=== PATIENT | female | born 1965 | race Caucasian/White ===

== ENCOUNTER → 2017-05-02 16:06 | Outpatient (CLI) | payer OTHER, SELFPAY ==
[2014-02-07 05:33] VITALS: BMI 21.7
[2014-02-07 06:45] VITALS: BP 112/71
[2017-05-02 17:54] LABS: Color, Urine Yellow (Yellow); Glucose, Dipstick Normal (Normal); Ketone-Dipstick Negative (Negative); Leukocyte Esterase-Dipstick Negative /ul (Negative); Nitrite-Dipstick Negative (Negative); Occult Blood-Urine 50 /ul (Negative); Protein-Dipstick Negative (Negative); Urine Bilirubin Dipstick Negative (Negative); Urine Clarity Clear (Clear); Urine Urobilinogen Normal (Normal)
[2017-05-02 17:57] LABS: Absolute Lymphocyte Count 3.29 X10^3/ul (0.83-4.51); Absolute Neutrophil Count 5.3 X10^3/uL (2.0-7.7); Basophil# 0.08 X10^3/uL; Basophil% 0.8 % (0-1); Hematocrit 41.3 % (37-47); Hemoglobin 13.9 g/dl (12.0-15.0); Lymphocyte # 3.29 X10^3/ul (4.0); Lymphocyte % 33.8 % (19-41); Mean Corp Hgb Conc 33.7 g/gl (32-36); Mean Corpuscular Hgb 31.7 pg (27.0-32.0); Mean Corpuscular Volume 94.3 fL (81-99); Mean Platelet Vol. 10.9 fl (6.2-12.0); Monocyte# 1.01 X10^3/uL; Monocyte% 10.4 % (0-10); Neutrophil # 5.25 X10^3/uL (2.7-7.7); Neutrophil % 53.9 % (47-70); POSITIVE COUNT NO; POSITIVE DIFFERENTIAL NO; POSITIVE MORPHOLOGY NO; Platelet Count 303 K/mm3 (150-450); RBC Distribution Width SD 46.6 fl (35.1-43.9); Red Blood Count 4.38 M/mm3 (4.2-5.4); White Blood Count 9.7 K/mm3 (4.4-11.0)
[2017-05-02 18:17] LABS: Microalbumin,Random Urine 6.1 mg/L (NO RANGE EST.); Microalbumin:Creatinine Ratio 16.7 mg/g CRE (<30 mg/g CRE)
[2017-05-02 18:24] LABS: AST(SGOT) 35 U/L (15-37); Alanine Aminotransfer ALT/SGPT 23 U/L (13-56); Albumin, Serum 3.9 g/dL (3.2-5.0); Alkaline Phosphatase 96 U/L (45-117); Anion Gap 7 (5-15); BUN 12 mg/dL (7-18); BUN/Creat Ratio 15.3 RATIO (10-20); Calcium,Total 8.9 mg/dL (8.5-10.1); Chloride 103 mmol/L (98-107); Creatinine, Serum 0.78 mg/dL (0.55-1.02); EST Glomerular Filtration Rate 82 mL/min (>60); Est Glom Filt Rate - Afr Amer 99 mL/min (>60); Globulin 4.1 g/dL (2.2-4.2); Glucose 88 mg/dL (74-106); Potassium 3.9 mmol/L (3.5-5.1); Sodium Level 137 mmol/L (136-145); Thyroid Stim Hormone (TSH) 2.09 uIU/mL (0.358-3.74)
== END ==
PROVIDERS: Family Provider Nurse Practitioner; PCP Nurse Practitioner; Visit Provider Nurse Practitioner
DX: I10 Essential (primary) hypertension (principal)
CPT/HCPCS: 36415; 80053; 81002; 82043; 82570; 84443; 85025

== ENCOUNTER → 2017-05-11 07:36 | Outpatient (CLI) | payer OTHER, SELFPAY ==
--- NOTE | 2017-05-11 07:39 | CT_ITS ---
STUDY: CT ABDOMEN AND PELVIS WITH CONTRAST REASON FOR EXAM: Female, 51 years old. History of abdominal aortic aneurysm. RADIATION DOSAGE (If Supplied By Facility): CTDIvol = ( 15.06 ) mGy, DLP = ( 391.62 ) mGycm TECHNIQUE: Transaxial images were obtained from the dome of the diaphragm to the symphysis pubis without oral contrast. 75mL ml of Isovue 370 contrast was administered. Sagittal and coronal images were reconstructed. Individualized dose optimization techniques were used for this CT. COMPARISON: None. FINDINGS: The visualized lung bases are unremarkable. The visualized portions of the heart are within normal limits. Normal liver. Normal gallbladder and extrahepatic biliary system. Normal spleen. Normal pancreas. There is symmetric enlargement of the adrenal glands suggesting adrenal hyperplasia. Mild degree of bilateral focal cortical scarring. Normal visualized stomach. Normal small intestine. Normal colon. The appendix is visualized and appears normal. There is diffuse atherosclerotic calcification of the abdominal aorta. There is evidence of a fusiform infrarenal abdominal aortic aneurysm with a transverse dimension of 4.3 cm. Mural thrombus is seen worse on the left side. The distal abdominal aorta tapers to a transverse dimension of 3.6 cm. Normal inferior vena cava. Normal retroperitoneum. Normal urinary bladder. There is absence of the uterus consistent with a prior hysterectomy. Normal abdominal wall. Normal osseous structures. CT/CT ANGIO ABD&PEL W/O&W/DYE IMPRESSION: Fusiform infrarenal abdominal aortic aneurysm with a transverse dimension of 4.3 cm. Electronically Signed: Stefano Wong MD at 14:35 EST Tel [phone], Service support ,
== END ==
PROVIDERS: Family Provider Nurse Practitioner; PCP Nurse Practitioner; Visit Provider Nurse Practitioner
DX: I72.2 Aneurysm of renal artery (principal)
CPT/HCPCS: 74174; Q9967

== ENCOUNTER → 2017-10-06 07:38 | Outpatient (CLI) | payer OTHER, SELFPAY ==
--- NOTE | 2017-10-06 07:44 | CT_ITS ---
STUDY: CTA OF THE ABDOMINAL AORTA REASON FOR EXAM: Female, 51 years old. AAA without rupture follow-up. Status post LA NENA, BSO, asthma RADIATION DOSAGE (If Supplied By Facility): CTDIvol = ( 22.74 ) mGy, DLP = ( 478.54 ) mGycm TECHNIQUE: Axial CT angiography multi-detector data acquisition was obtained from the dome of the diaphragm to the symphysis pubis following intravenous administration of 100 ml of Isovue 370 contrast. Axial images and MIP images were reconstructed from the axial data set. Post-processing of the angiographic images was performed, with multiplanar reformation and 3D reconstruction. Individualized dose optimization techniques were used for this CT. TECHNICAL QUALITY: Good COMPARISON: 05/11/2017 CTA aorta. Descriptors of Narrowing: None (0%) Mild (< 50%) Moderate (50-70%) Severe (70-90%) Subtotal/Total Occlusion (90-100%) Non-Evaluable (technically non-diagnostic FINDINGS: There is an infrarenal fusiform abdominal aortic aneurysm with bilobed contour extending to the iliac bifurcation. There is mild atherosclerosis of the wall, atheromatous wall thickening/mural thrombus left. Aneurysm is stable since previous examination measuring in the superior aspect 3.7 x 4.5 cm image 63 series 2 and measuring on corresponding levels. There is stable mild calcification of the mural thrombus. The inferior component of the aneurysm measures 4.2 cm, previously 4 cm. There is minimal arteriomegaly of the left common proximal iliac artery. Length of the aneurysm approximately 11.45 cm. Celiac and superior mesenteric arteries: No demonstrated narrowing. Inferior mesenteric artery: No proximal enhancement. Right renal artery(arteries): No demonstrated narrowing. Left renal artery(arteries): No demonstrated narrowing. Right common iliac artery: No demonstrated narrowing. Right external iliac artery: No demonstrated narrowing. Right internal iliac artery: There is moderate proximal narrowing. Left common iliac artery: No demonstrated narrowing. Left external iliac artery: No demonstrated narrowing. Left internal iliac artery: There is moderate proximal narrowing. RIGHT LOWER EXTREMITY Right common femoral artery: No demonstrated narrowing. Right profundus femoris: No demonstrated narrowing. Right superficial femoral: No demonstrated narrowing. LEFT LOWER EXTREMITY Left common femoral artery: No demonstrated narrowing. Left profundus femoris: No demonstrated narrowing. Left superficial femoral: No demonstrated narrowing. CT ABDOMEN AND PELVIS WITH CONTRAST FINDINGS: Mild hyperinflation of lung bases without bulla formation. There is no focal parenchymal abnormality. The visualized portions of the heart are within normal limits. Normal liver. Normal gallbladder and extrahepatic biliary system. Normal spleen. Normal pancreas. Normal bilateral adrenal glands. Bilateral renal cortical defects felt to be scarring. There is no obstructive uropathy, obstructive renal or ureteral calculi. Normal visualized stomach. Normal small intestine. Normal colon. The appendix is visualized and appears normal. Normal inferior vena cava. Normal retroperitoneum. Normal urinary bladder. There is absence of the uterus consistent with a prior hysterectomy. Normal abdominal wall. Age-appropriate osseous structures. CT/CT ANGIO ABD&PEL W/O&W/DYE IMPRESSION: Stable infrarenal falciform abdominal aortic aneurysm with bilobed contour, predominantly left neural wall thrombus partially calcified with the proximal aneurysm measuring 3.7 x 4.5 cm . No enhancement of the proximal inferior mesenteric artery likely secondary to retrograde filling via superior mesenteric artery branches. Other nonacute findings as outlined above. Electronically Signed: Alejandra Skinner MD at 7:11 EDT , Service support ,
== END ==
PROVIDERS: Family Provider Nurse Practitioner; PCP Nurse Practitioner; Visit Provider Surgery Vascular Surgery
DX: I71.4 Abdominal aortic aneurysm, without rupture (principal)
CPT/HCPCS: 74174; Q9967

== ENCOUNTER 2021-10-15 11:44 | Emergency (ER) | payer BC, SELFPAY ==
[2021-10-15 11:45] VITALS: BP 174/96; PULSE 102; RESP 16; TEMP 36.6; O2SAT 98; BMI 24.3
--- NOTE | 2021-10-15 11:53 | EX.ED.DYSGE1 ---
HPI <RUDI Morales - Last Filed: 10/15/21 12:03> History of Present Illness Chief Complaint: Bite Narrative Narrative: Patient presents with a cat bite on her right wrist that occurred 2 days ago. She seen a neighborhood cat around and picked it up defeated when it bit her on the wrist. She states it was acting normally. Yesterday the area became red which worsened today prompting her to come in. She has no fever chills or constitutional symptoms of illness. She is not diabetic or immunocompromise. Last tetanus unknown. PFSH <RUDI Morales - Last Filed: 10/15/21 12:03> [facility] Medical History (Updated 10/15/21 @ 12:03 by Alejandra Blake) Acute asthma flare Hyperlipidemia Hypertension Home Medications amoxicillin 875 mg-potassium clavulanate 125 mg tablet 1 tab PO BID 7 days #14 tabs 10/15/21 [Rx Last Taken Unknown] lisinopril 10 mg tablet 10 mg PO DAILY 10/15/21 [History Last Taken Unknown] simvastatin 5 mg tablet 5 mg PO QHS 10/15/21 [History Last Taken Unknown] warfarin 5 mg tablet 7 mg PO SUWE 10/15/21 [History Last Taken Unknown] warfarin 6 mg tablet 6 mg PO MOTUTHFRSA 10/15/21 [History Last Taken Unknown] Allergy/AdvReac Type Severity Reaction Status Date / Time aspirin Allergy Hives Verified 10/15/21 11:47 Surgical History (Updated 10/15/21 @ 12:03 by Alejandra Blake) H/O: hysterectomy History of AAA (abdominal aortic aneurysm) repair Social History Smoking Status: Current every day smoker tobacco type: cigarettes ROS <RUDI Morales - Last Filed: 10/15/21 12:03> ROS ED ROS Narrative Constitutional: Negative for fever, chills, malaise. Eyes: Negative for visual change. ENT: Negative for sore throat, rhinorrhea. CVS: Negative for palpitations, chest pain, syncope. Respiratory: Negative for shortness of breath, cough. GI: Negative for abdominal pain, nausea, vomiting. : Negative for dysuria, hematuria or frequency. Neuro: Negative for headache, motor/sensory dysfunction. Skin: Positive for wound. Musc: Negative for joint pain, swelling, trauma. Heme: Negative for easy bruising, bleeding, lymphadenopathy. EXAM <RUDI Morales - Last Filed: 10/15/21 12:03> Physical Exam Narrative Exam Narrative: CONST: Patient sitting in no acute distress. EYES: Normal inspection. NECK: Normal inspection. RESP: No respiratory distress, CTAB. CVS: Regular rate and rhythm, no murmur, no gallop. SKIN: Puncture wound with small scab right dorsal radial wrist, surrounding erythema extending up the dorsum of the hand and 3cm proximally up the forearm. Warmth but no swelling, no fluctuance or crepitus. EXTREMITIES: Full range of motion right upper extremity, 2+ radial pulse. Brisk cap refill. NEURO: Oriented x4. PSYCH: Normal affect. Const Vital Signs: 10/15/21 11:45 10/15/21 11:56 Temperature 97.9 F 97.9 F Temperature Source Temporal Temporal Pulse Rate 102 H 102 H Respiratory Rate 16 16 Blood Pressure 174/96 H 174/96 H Blood Pressure Mean 122 Pulse Ox 98 98 Oxygen Delivery Method Room Air Room Air <Dr. Terry Cali DO - Last Filed: 10/15/21 12:07> Physical Exam Const Vital Signs: 10/15/21 11:45 10/15/21 11:56 Temperature 97.9 F 97.9 F Temperature Source Temporal Temporal Pulse Rate 102 H 102 H Respiratory Rate 16 16 Blood Pressure 174/96 H 174/96 H Blood Pressure Mean 122 Pulse Ox 98 98 Oxygen Delivery Method Room Air Room Air MDM <RUDI Morales - Last Filed: 10/15/21 12:03> [facility] Narrative Medical decision making narrative: Patient has a cat bite that is a puncture wound on the right dorsal wrist that occurred 2 days ago. Since then she has developed cellulitis that extends up the dorsum of the hand and slightly up the forearm. There is no swelling or signs of abscess. Full range of motion and neurovascularly intact. She appears well not septic. There is no indication for rabies vaccine as she has seen the cat multiple times and it has acted normally and the bite was provoked. She has not yet been on antibiotics. She was given tetanus and first dose of Augmentin here with prescription x1 week. 1. Cat bite, right wrist 2. Cellulitis, right upper extremity <Dr. Terry Cali DO - Last Filed: 07/21/22 12:07> MDM MDM Narrative Medical decision making narrative: This patient was seen with a PA/FLEET MAINTENANCE MANAGER Individually assessed they patient including history and physical. I have reviewed everything on the chart that is available and agree with the documentation provided by the PA/FLEET MAINTENANCE MANAGER including discussion about the assessment, treatment plan, discussion, and return precautions. Patient with small puncture wound surrounding abrasions on the right breast dorsal laterally. There is some erythema overlying this region along the distal forearm and into the hand. Patient does not have any significant wrist pain with range of motion. Right hand neurovascular intact with cap refill all 5 fingers. No fluctuant masses. No lymphangitic streaking. Patient has seen his cat multiple times and feels like the cat is acting at baseline however did bite her this time. Patient felt this might of been provoked. I do not believe she treatment for rabies. The area of cellulitis was outlined by nursing. She is given Augmentin and a prescription for this. Tetanus was updated. She is counseled on wound care and monitoring for signs of worsening infection. Return precautions discussed. Patient has a cat bite that is a puncture wound on the right dorsal wrist that occurred 2 days ago. Since then she has developed cellulitis that extends up the dorsum of the hand and slightly up the forearm. There is no swelling or signs of abscess. Full range of motion and neurovascularly intact. She appears well not septic. There is no indication for rabies vaccine as she has seen the cat multiple times and it has acted normally and the bite was provoked. She has not yet been on antibiotics. She was given tetanus and first dose of Augmentin here with prescription x1 week. 1. Cat bite, right wrist 2. Cellulitis, right upper extremity Lab Data Attestation: I reviewed the patient's lab results. Discharge Plan Triage Chief Complaint: Bite ED Midlevel Provider: Gissel June ED Provider: Terry Cali Dx/Rx/DC Orders Clinical Impression: Cat bite involving extremity, Cellulitis of arm, right Instructions: ED Animal Bite (General), ED Cellulitis Prescriptions: New amoxicillin-pot clavulanate 875-125 mg tablet 1 tab PO BID 7 Days Qty: 14 0RF No Action warfarin 6 mg Tablet 6 mg PO MOTUTHFRSA simvastatin 5 mg Tablet 5 mg PO QHS lisinopril 10 mg Tablet 10 mg PO DAILY warfarin 5 mg Tablet 7 mg PO DORI Primary Care Provider: Shayy Garcia FLEET MAINTENANCE MANAGER Referrals: Shayy Garcia FLEET MAINTENANCE MANAGER, FLEET MAINTENANCE MANAGER-C [Primary Care Provider] - Activity Restrictions/Additional Instructions: Please see your primary care doctor early next week so they can monitor the area. Take the antibiotics as prescribed. If the redness worsens or you feel sick with a fever or any worsening symptoms come back to the ER. Disposition Disposition: Home, Self Care
[2021-10-15 11:56] VITALS: BP 174/96; PULSE 102; RESP 16; TEMP 36.6; O2SAT 98
[2021-10-15] MEDS: Amox/Clavulanate 875 MG Tablet PO (12:07)
[2021-10-15] MEDS: Diphth,Pertuss(Acell),Tet Vac 0.5 ML Vial IM (12:08)
--- NOTE | 2021-10-15 12:14 | ED.RN ---
rt hand redness marked with skin marker and pt informed to watch for worsening closely
[2021-10-15 12:28] VITALS: BP 153/88; BP 153/98; PULSE 88; RESP 18; O2SAT 94
== END 2021-10-15 12:29 | disposition home or self-care (01) ==
LOC: ED 12:17
PROVIDERS: Emergency Provider Student in an Organized Health Care Education/Training Program; PCP Nurse Practitioner; Visit Provider Student in an Organized Health Care Education/Training Program
DX: S61.551A Open bite of right wrist, initial encounter (principal); L03.113 Cellulitis of right upper limb; F17.210 Nicotine dependence, cigarettes, uncomplicated; E78.5 Hyperlipidemia, unspecified; I10 Essential (primary) hypertension; W55.01XA Bitten by cat, initial encounter; Z79.01 Long term (current) use of anticoagulants; Z79.899 Other long term (current) drug therapy; Z23 Encounter for immunization
CPT/HCPCS: 90471; 90715; 99283

== ENCOUNTER 2021-11-04 10:00 | Emergency (ER) | payer BC, SELFPAY ==
[2021-11-04 10:02] VITALS: BP 151/94; PULSE 95; RESP 18; TEMP 36.7; O2SAT 99; BMI 23.6
--- NOTE | 2021-11-04 10:16 | CT_ITS ---
STUDY: CT BRAIN WITHOUT CONTRAST REASON FOR EXAM: Female, 56 years old. Headache on coumadin RADIATION DOSAGE (If Supplied By Facility): CTDIvol = ( 44.99 ) mGy, DLP = ( 762.36 ) mGycm TECHNIQUE: Transaxial CT imaging of the brain was performed without administration of intravenous contrast material. Individualized dose optimization techniques were used for this CT. COMPARISON: No relevant priors. FINDINGS: Normal soft tissue structures. Normal calvarium. Normal size ventricles and extra-axial spaces for the patient''s age. Normal white matter tracts of the cerebral hemispheres. Normal basal ganglia and thalami. Normal brainstem. Normal cerebellum. There is no intracranial hemorrhage. There are no findings of an acute ischemic infarction. Normal visualized paranasal sinuses. CT/Brain/Head without Contrast IMPRESSION: Normal unenhanced CT scan of the brain. Electronically Signed: Stefano Wong MD at 10:56 EDT ,
--- NOTE | 2021-11-04 10:19 | EDS_ITS ---
HPI History of Present Illness Chief Complaint: Headache Informant: patient Onset/Context/Timing Onset: Today Timing: Continuous Quality -Headache: Positive for Throbbing; Negative for Similar Prior Headaches Current Severity: Moderate Maximum Severity: Moderate Associated Symptoms/Injury Associated Symptoms: Positive for Nausea; Negative for Fever, Vomiting, Sore Throat, Sinus Pressure, Numbness, Tingling, Preceding Aura, Visual Changes, Blurred Vision, Photophobia or Visual Loss Injury - MEJÍA: Negative for Direct Trauma, Fall or Assault Narrative Narrative: 56-year-old female history of hypertension and treated for prior blood clots on Coumadin. Prior AAA repair. States when she gets up early every morning around 2:30 AM to get ready for work and today she noticed a throbbing headache throughout her skull. Noticed her blood pressure is elevated 149/94. Describes headache as pounding. States she normally does not get headaches. Denies any recent falls or trauma. She denies any neck pain. No neurological symptoms. Prior similar symptoms: No Recent Illness/Hospitalization: No PFSH PFSH Medical History Acute asthma flare Hyperlipidemia Hypertension Home Medications amoxicillin 875 mg-potassium clavulanate 125 mg tablet 1 tab PO BID 7 days #14 tabs 10/15/21 [Rx Last Taken Unknown] lisinopril 10 mg tablet 10 mg PO DAILY 10/15/21 [History Last Taken Unknown] simvastatin 5 mg tablet 5 mg PO QHS 10/15/21 [History Last Taken Unknown] warfarin 5 mg tablet 7 mg PO SUWE 10/15/21 [History Last Taken Unknown] warfarin 6 mg tablet 6 mg PO MOTUTHFRSA 10/15/21 [History Last Taken Unknown] Allergy/AdvReac Type Severity Reaction Status Date / Time aspirin Allergy Hives Verified 10/15/21 11:47 Surgical History H/O: hysterectomy History of AAA (abdominal aortic aneurysm) repair Social History Smoking Status: Current every day smoker tobacco type: cigarettes ROS ROS ED ROS Narrative Headache. Review of Systems ROS Unobtainable: Denies due to encephalopathy Constitutional Constitutional ED: Denies chills Eyes Eyes: Denies blurry vision ENT ENT ED: Denies ear pain Cardiovascular Cardiovascular: Denies chest pain Respiratory/Chest Respiratory/Chest: Denies cough or dyspnea Gastrointestinal Gastrointestinal: Denies abdominal pain or constipation Genitourinary Genitourinary ED: Denies dysuria or hematuria Musculoskeletal Musculoskeletal: Denies arthralgias Integumentary Denies abscess Neurologic Neurologic: Reports headache(s) Psychiatric Psychiatric: Denies anxiety Endocrine Endocrinology: Denies polydipsia Hematologic/Lymphatic Hematologic/Lymphatic: Denies easy bleeding Allergic/Immunologic Allergic/Immunologic ED: Denies mouth swelling EXAM Physical Exam Narrative Exam Narrative: 36-year-old female no acute distress. Vital signs stable. Initial blood pressure 151/94. Pulse ox 9 9% on room air no signs hypoxia. H EENT exam unremarkable. Atraumatic. Nontender. Neck nontender. Full range of motion. No meningismus. Lungs clear to auscultation bilaterally. Heart regular rhythm rate about 90 no murmur. Chest wall nontender. Abdomen soft nontender. Moving all 4 extremities. 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 Dorsi plantarflexion intact. Back nontender. Neurologically she is awake and alert with no focal motor deficits. NIH score is 0. Fingertip to nose within normal limits. Const Vital Signs: 11/04/21 10:02 11/04/21 10:31 Temperature 98.1 F Temperature Source Temporal Pulse Rate 95 78 Respiratory Rate 18 Blood Pressure 151/94 H 128/75 H Blood Pressure Mean 113 92 Pulse Ox 99 Oxygen Delivery Method Room Air Positive well nourished and well developed; Negative for obese, cachectic, contractures or unkempt General Appearance ED: well developed and NAD; Negative for unkempt, cachectic, contractures, cyanotic or diaphoretic Nutritional Appearance: Negative for cachectic or obese HEENT Reports normocephalic and moist mucous membranes atraumatic; Negative for trauma, tenderness, temporal artery tenderness or vesicular rash Face and Sinus: Negative for sinus tenderness Eyes PERRL and EOMs intact bilaterally General Eye ED: Negative for pale conjunctiva or scleral icterus Neck no lymphadenopathy, supple, no meningeal signs and no JVD General: Negative for tenderness Resp normal respiratory effort Effort and Inspection: Negative for retractions Auscultation: Negative for rales, rhonchi or wheezes Cardio regular rate, regular rhythm, S1 normal heart sound, S2 normal heart sound and no murmurs Rate: Negative for bradycardia Rhythm: Negative for abnormal rhythm GI non-tender and non-distended Auscultation: normoactive bowel sounds Palpation: soft; Negative for firm, tender or guarding Back/Spine no CVA tenderness General Back: Negative for CVA tenderness Cervical Spine: Negative for cervical spine tenderness Thoracic Spine / Upper Back: Negative for thoracic spinal tenderness Lumbar Spine / Lower Back: Negative for lumbar spinal tenderness Extremity normal to inspection and full ROM General Extremety ED: Negative for edema or tenderness General Extremity: Negative for edema Neuro oriented x3, CN's II-XII intact bilaterally and no sensory deficits noted Sensorium / Orientation: awake, alert, oriented to person, oriented to place and oriented to time; Negative for orientation impaired, lethargic or stuporous Coordination / Balance: [id number] test normal Speech: speech normal Gait (Neuro): normal gait Motor Exam: strength 5/5 throughout Psych mental status grossly normal Appearance: Negative for unkempt Attitude: No agitated Mood & Affect: Negative for depressed Skin Lesions: no lesions Rashes: no rashes MDM MDM MDM Narrative Medical decision making narrative: 56-year-old with history of hypertension, AAA repair and on Coumadin due to blood clots. Complaining of a headache. CAT scan and labs are being obtained. She also complained of atypical back pain so chest x-ray is being obtained. The back pain is parathoracic on the left and nonreproducible. She will be treated with Zofran for nausea. She is already taken multiple Tylenol at home for the headache. Repeat exam patient doing well at 11 AM. Headache is resolving. Nausea has resolved with the Zofran. She does not need anything else for pain. Exam is normal and unchanged. She and I went over her labs. Patient will be discharged Lab Data Attestation: I reviewed the patient's lab results. Lab results narrative: CBC shows a white count of 6. H&H of 13 and 39. Normal platelets. She is on Coumadin her INR is 3.2. Electrolytes show potassium of 3.4 gap of 7 normal BUN and creatinine. Glucose 163. Labs: Laboratory Results - last 24 hr 11/04/21 11/04/21 11/04/21 10:25 10:25 10:25 WBC 6.2 RBC 4.08 L Hgb 13.3 Hct 39.0 MCV 95.6 MCH 32.6 H MCHC 34.1 RDW Std Deviation 47.8 H RDW Coeff of Golden 13.5 Plt Count 233 MPV 9.8 Immature Gran % (Auto) 0.500 Neut % (Auto) 75.8 H Lymph % (Auto) 6.0 L Swain % (Auto) 15.6 H Eos % (Auto) 1.5 Baso % (Auto) 0.6 Absolute Neuts (auto) 4.7 Absolute Lymphs (auto) 0.37 L Nucleated RBC % 0 PT 32.7 H INR 3.2 Sodium 137 Potassium 3.4 L Chloride 106 Carbon Dioxide 24.0 Anion Gap 7 BUN 16 Creatinine 0.82 Estim Creat Clear Calc 57.12 Est GFR (MDRD) Af Amer 93 Est GFR (MDRD) Non-Af 77 BUN/Creatinine Ratio 19.6 Glucose 163 H Calcium 9.0 Radiography Diagnostic Testing: Chest x-ray, portable, single view interpreted myself shows no acute abnormality. Normal cardiac silhouette. No infiltrates. Normal lung lea. CAT scan of the brain shows no acute abnormality. No intracranial bleed. Awaiting radiologist formal interpretation. Rhythm Strip Rhythm Strip: Sinus Rhythm Rate: 83 Ectopy: None EKG Initial EKG: Attestation: I personally reviewed and interpreted this EKG as follows: Interpretation: Sinus Rhythm and No Acute Injury Pattern Comments: Normal sinus rhythm rate 83 no acute signs of ND or ischemia. Discharge Plan Triage Chief Complaint: Headache ED Provider: Ramos Womack Dx/Rx/DC Orders Clinical Impression: Headache, Chronic anticoagulation, Chronic hypertension Prescriptions: No Action warfarin 6 mg Tablet 6 mg PO MOTUTHFRSA simvastatin 5 mg Tablet 5 mg PO QHS lisinopril 10 mg Tablet 10 mg PO DAILY amoxicillin-pot clavulanate 875-125 mg tablet 1 tab PO BID 7 Days Qty: 14 0RF warfarin 5 mg Tablet 7 mg PO SUWE Primary Care Provider: Care Physician,No Primary Referrals: Shayy Garcia DIAPER MACHINE TENDER, DIAPER MACHINE TENDER-C [NON-STAFF] - As Needed Activity Restrictions/Additional Instructions: Your CAT scan, chest x-ray and labs are unremarkable. Your Coumadin level was slightly high at 3.2 was your INR. Have that rechecked in 1 to 2 weeks. Do not increase your Coumadin to 7 mg keep it at 5 mg and to have it rechecked. Disposition Disposition: Home, Self Care
[2021-11-04] MEDS: Ondansetron 4 MG/2 ML Vial IV (10:28)
[2021-11-04 10:30] LABS: Absolute Lymphocyte Count 0.37 X10^3/uL (0.83-4.51); Absolute Neutrophil Count 4.7 X10^3/uL (2.0-7.7); Basophil# 0.04 X10^3/uL; Basophil% 0.6 % (0-1); Eosinophil# 0.09 X10^3/uL; Eosinophils% 1.5 % (0-5); Hemoglobin 13.3 g/dL (12.0-15.0); Lymphocyte # 0.37 X10^3/ul (0.83-4.51); Mean Corp Hgb Conc 34.1 g/dL (32-36); Mean Corpuscular Hgb 32.6 pg (27.0-32.0); Mean Corpuscular Volume 95.6 fL (81-99); Mean Platelet Vol. 9.8 fl (6.2-12.0); Monocyte# 0.96 X10^3/uL; Monocyte% 15.6 % (0-10); NRBC Flagged by Analyzer 0 % (0-5); Neutrophil # 4.67 X10^3/uL (2.7-7.7); Neutrophil % 75.8 % (47-70); POSITIVE DIFFERENTIAL YES; Platelet Count 233 K/mm3 (150-450); RBC Distribution Width CV 13.5 % (11.6-14.6); RBC Distribution Width SD 47.8 fl (35.1-43.9); Red Blood Count 4.08 M/mm3 (4.2-5.4); White Blood Count 6.2 K/mm3 (4.4-11.0)
--- NOTE | 2021-11-04 10:30 | EKG12_ITS ---
Test Reason : SHOULDER PAIN Blood Pressure : / mmHG Vent. Rate : 083 BPM Atrial Rate : 083 BPM P-R Int : 128 ms QRS Dur : 082 ms QT Int : 360 ms P-R-T Axes : 065 044 046 degrees QTc Int : 423 ms Normal sinus rhythm Normal ECG Confirmed by CHARLES CARDOZO, DOC ([id number]), marketing editor [place] DAVIDSON ([id number]) on 11/06/2021 2:12:56 PM Referred By: MARY Confirmed By:ROSSY SOTO MD
[2021-11-04 10:31] VITALS: BP 128/75; PULSE 78
[2021-11-04 10:33] LABS: Differential Indicated SCAN CRITERIA MET
--- NOTE | 2021-11-04 10:40 | RAD_ITS ---
STUDY: X-RAY CHEST REASON FOR EXAM: Female, 56 years old. atypical back pain TECHNIQUE: Single AP portable view of the chest. COMPARISON: 06/04/2013 FINDINGS: The lungs are clear and expanded. There is no demonstrated pleural abnormality. Normal size heart. Normal mediastinum and paramjit. Normal visualized pulmonary arteries. Normal visualized aortic arch and descending thoracic aorta. Normal visualized thoracic spine. Normal visualized ribs, clavicles, and shoulders. There is no demonstrated abnormality of the visualized soft tissue structures of the upper abdomen. RAD/Chest 1 View (Portable) IMPRESSION: Normal x-ray examination of the chest. Electronically Signed: Santy Gil MD at 10:53 EDT ,
[2021-11-04 10:41] LABS: Anion Gap 7 (5-15); BUN 16 mg/dL (7-18); BUN/Creat Ratio 19.6 RATIO (10-20); Chloride 106 mmol/L (98-107); Creatinine, Serum 0.82 mg/dL (0.55-1.02); EST Glomerular Filtration Rate 77 mL/min (>60); Est Glom Filt Rate - Afr Amer 93 mL/min (>60); Estimated Creatinine Clearance 57.12 ml/min; Glucose 163 mg/dL (74-106); Potassium 3.4 mmol/L (3.5-5.1); Sodium Level 137 mmol/L (136-145)
[2021-11-04 10:47] LABS: International Normalized Ratio 3.2; Prothrombin Time (Protime)PT. 32.7 SECONDS (11.7-14.9)
[2021-11-04 11:02] LABS: Platelet Estimate ADEQUATE (ADEQ)
--- NOTE | 2021-11-04 11:02 | CM.ED ---
Social Work Note Reason for Referral: No PCP SW reviewed chart, pt has no PCP listed. SW in to speak with pt. Pt states that she does have a PCP and she is through [facility]. Pt states she does not remember her PCP's name. Yani Vazquez PLASTIC PARTS FABRICATOR, DELIVERY DRIVER
[2021-11-04 11:03] LABS: Red Cell Morphology NORM C+C NORMAL (NORM C&C)
[2021-11-04 11:17] VITALS: BP 119/80; PULSE 72; RESP 15; O2SAT 98
== END 2021-11-04 11:18 | disposition home or self-care (01) ==
PROVIDERS: Emergency Provider Emergency Medicine; Visit Provider Emergency Medicine
DX: R51.9 Headache, unspecified (principal); M54.9 Dorsalgia, unspecified; I10 Essential (primary) hypertension; R11.0 Nausea; E78.5 Hyperlipidemia, unspecified; F17.210 Nicotine dependence, cigarettes, uncomplicated; Z79.01 Long term (current) use of anticoagulants; Z79.899 Other long term (current) drug therapy; Z86.2 Personal history of diseases of the blood and blood-forming organs and certain disorders involving the immune mechanism
CPT/HCPCS: 70450; 71045; 80048; 85025; 85610; 93005; 96374; 99283; A4216; J2405

== ENCOUNTER 2021-11-19 15:44 | Emergency (ER) | payer BC, SELFPAY ==
[2021-11-19 15:45] VITALS: BP 177/88; PULSE 102; RESP 14; TEMP 36.6; O2SAT 95; BMI 23.6
--- NOTE | 2021-11-19 15:56 | EX.ED.DYSGE1 ---
HPI History of Present Illness Chief Complaint: Hypertension Informant: patient Narrative Narrative: Presents here for concerns of elevated blood pressure. Reports this morning blood pressure 156/94 at home. She is on lisinopril 10 mg typically at night. States with this elevation she took an extra dose this morning. Mild headache and mild chest discomfort. She is on warfarin history of blood clots. Last seen her PCP 6 months ago states blood pressures mildly elevated that time. No adjustments to medications. She has a follow-up this coming Tuesday. She was seen 2 weeks ago for elevated blood pressure and headaches. History of asthma. States nonproductive cough for the past week. No fevers. No myalgias. No dyspnea. Prior similar symptoms: Yes PFSH PFS Medical History Acute asthma flare Hyperlipidemia Hypertension Home Medications amoxicillin 875 mg-potassium clavulanate 125 mg tablet 1 tab PO BID 7 days #14 tabs 10/15/21 [Rx Last Taken Unknown] lisinopril 10 mg tablet 10 mg PO DAILY 10/15/21 [History Last Taken Unknown] simvastatin 5 mg tablet 5 mg PO QHS 10/15/21 [History Last Taken Unknown] warfarin 5 mg tablet 7 mg PO SUWE 10/15/21 [History Last Taken Unknown] warfarin 6 mg tablet 6 mg PO MOTUTHFRSA 10/15/21 [History Last Taken Unknown] Allergy/AdvReac Type Severity Reaction Status Date / Time aspirin Allergy Hives Verified 11/19/21 15:48 Surgical History H/O: hysterectomy History of AAA (abdominal aortic aneurysm) repair Social History Smoking Status: Current every day smoker tobacco type: cigarettes EXAM Physical Exam Const Vital Signs: 11/19/21 15:45 11/19/21 15:52 11/19/21 16:12 Temperature 97.9 F Temperature Source Temporal Pulse Rate 102 H Respiratory Rate 14 Respiratory Effort Short of Breath Respiratory Pattern Normal Blood Pressure 177/88 H Blood Pressure Mean 117 Pulse Ox 95 Oxygen Delivery Method Room Air Room Air 11/19/21 16:44 11/19/21 17:38 11/19/21 19:31 Temperature Temperature Source Pulse Rate 77 Respiratory Rate 15 Respiratory Effort Respiratory Pattern Blood Pressure 146/96 H 136/89 H 131/84 H Blood Pressure Mean 112 104 Pulse Ox 95 Oxygen Delivery Method Room Air MDM MDM MDM Narrative Medical decision making narrative: Patient elevated blood pressure reporting chest pains. EKG normal. Cardiac work-up negative with 2 troponins. INR supratherapeutic 4.6. Denies any bleeding issues. Chest x-ray 1 view reviewed by myself and read by radiology shows no acute process. Blood pressure improved without intervention down to 136/84. She did take an extra lisinopril prior to arrival. Discussed to increase her lisinopril to 20 mg total at night with her nighttime dosing. She will keep a log of her blood pressures. She will hold her Coumadin in the morning and call her PCP as she takes in the morning for next dosing. She has an appointment on Tuesday with PCP office to recheck her blood pressures and her INR. Return precautions. All questions were answered. Lab Data Attestation: I reviewed the patient's lab results. Labs: Laboratory Results - last 24 hr 11/19/21 11/19/21 11/19/21 16:10 16:10 16:10 WBC 9.2 RBC 4.35 Hgb 14.4 Hct 40.7 MCV 93.6 MCH 33.1 H MCHC 35.4 RDW Std Deviation 45.0 H RDW Coeff of Golden 13.1 Plt Count 297 MPV 10.0 Immature Gran % (Auto) 0.400 Neut % (Auto) 66.7 Lymph % (Auto) 23.9 Henderson % (Auto) 7.8 Eos % (Auto) 0.7 Baso % (Auto) 0.5 Absolute Neuts (auto) 6.1 Absolute Lymphs (auto) 2.20 Nucleated RBC % 0 PT 43.3 H INR 4.6 H* Sodium 135 L Potassium 3.8 Chloride 103 Carbon Dioxide 22.0 Anion Gap 10 BUN 8 Creatinine 0.74 Estim Creat Clear Calc 63.29 Est GFR (MDRD) Af Amer 104 Est GFR (MDRD) Non-Af 86 BUN/Creatinine Ratio 10.8 Glucose 90 Calcium 9.0 Troponin I High Sens 6 11/19/21 18:35 WBC RBC Hgb Hct MCV MCH MCHC RDW Std Deviation RDW Coeff of Golden Plt Count MPV Immature Gran % (Auto) Neut % (Auto) Lymph % (Auto) Henderson % (Auto) Eos % (Auto) Baso % (Auto) Absolute Neuts (auto) Absolute Lymphs (auto) Nucleated RBC % PT INR Sodium Potassium Chloride Carbon Dioxide Anion Gap BUN Creatinine Estim Creat Clear Calc Est GFR (MDRD) Af Amer Est GFR (MDRD) Non-Af BUN/Creatinine Ratio Glucose Calcium Troponin I High Sens 5 Radiography Diagnostic Testing: Clinical Impression(s) from Imaging Studies Chest X-Ray 11/19/21 16:12 IMPRESSION: No acute radiographic abnormalities. Electronically Signed: Nabeel Youssef MD at 16:50 EDT , EKG Initial EKG: Attestation: I personally reviewed and interpreted this EKG as follows: Comments: EKG: Sinus rate of 77, no ST or T wave changes. Discharge Plan Triage Chief Complaint: Hypertension ED Provider: Kenton Solis Dx/Rx/DC Orders Clinical Impression: Chest pain, Elevated blood pressure reading in office with diagnosis of hypertension, Supratherapeutic INR Instructions: ED Chest Pain, Noncardiac, ED Hypertension, Established Prescriptions: No Action warfarin 6 mg Tablet 6 mg PO MOTUTHFRSA simvastatin 5 mg Tablet 5 mg PO QHS lisinopril 10 mg Tablet 10 mg PO DAILY amoxicillin-pot clavulanate 875-125 mg tablet 1 tab PO BID 7 Days Qty: 14 0RF warfarin 5 mg Tablet 7 mg PO SUWE Primary Care Provider: Care Physician,No Primary Referrals: Care Physician,No Primary [Primary Care Provider] - Activity Restrictions/Additional Instructions: Your INR is 4.6 today. Hold tomorrow morning's dose discussed with PCP office tomorrow for next dosing. Blood pressure down to 131/84 prior to discharge without intervention. Take your lisinopril 2 tabs for total 20 mg at night daily. Keep a log of your blood pressure follow-up as scheduled with your PCP on Tuesday. Disposition Disposition: Home, Self Care Discharge Date/Time: 11/19/21 19:32
--- NOTE | 2021-11-19 16:02 | EKG12_ITS ---
Test Reason : HYPERTENSION Blood Pressure : / mmHG Vent. Rate : 077 BPM Atrial Rate : 077 BPM P-R Int : 112 ms QRS Dur : 086 ms QT Int : 368 ms P-R-T Axes : 042 034 041 degrees QTc Int : 416 ms Normal sinus rhythm Normal ECG Confirmed by CHARLES CARDOZO, DOC ([id number]), publications editor [place] DAVIDSON ([id number]) on 11/23/2021 9:29:34 AM Referred By: Confirmed By:ROSSY SOTO MD
--- NOTE | 2021-11-19 16:12 | RAD_ITS ---
INDICATION: chest pain EXAMINATION/TECHNIQUE: X-RAY - XR Chest 1 View COMPARISON: 11/04/2021. FINDINGS: The lungs are clear. Tortuous and calcified thoracic aorta. The heart is mildly enlarged. No pleural effusion or pneumothorax. No acute osseous abnormalities. RAD/Chest 1 View (Portable) IMPRESSION: No acute radiographic abnormalities. Electronically Signed: Nabeel Youssef MD at 16:50 EDT ,
[2021-11-19 16:28] LABS: Absolute Neutrophil Count 6.1 X10^3/uL (2.0-7.7); Basophil# 0.05 X10^3/uL; Basophil% 0.5 % (0-1); Eosinophil# 0.06 X10^3/uL; Eosinophils% 0.7 % (0-5); Hematocrit 40.7 % (37-47); Hemoglobin 14.4 g/dL (12.0-15.0); Lymphocyte % 23.9 % (19-41); Mean Corp Hgb Conc 35.4 g/dL (32-36); Mean Corpuscular Hgb 33.1 pg (27.0-32.0); Mean Corpuscular Volume 93.6 fL (81-99); Monocyte# 0.72 X10^3/uL; Monocyte% 7.8 % (0-10); NRBC Flagged by Analyzer 0 % (0-5); Neutrophil # 6.13 X10^3/uL (2.7-7.7); Neutrophil % 66.7 % (47-70); Platelet Count 297 K/mm3 (150-450); RBC Distribution Width CV 13.1 % (11.6-14.6); Red Blood Count 4.35 M/mm3 (4.2-5.4); White Blood Count 9.2 K/mm3 (4.4-11.0)
[2021-11-19 16:36] LABS: Prothrombin Time (Protime)PT. 43.3 SECONDS (11.7-14.9)
[2021-11-19 16:40] LABS: International Normalized Ratio 4.6
[2021-11-19 16:44] VITALS: BP 146/96; PULSE 77; RESP 15; O2SAT 95
[2021-11-19 16:46] LABS: Anion Gap 10 (5-15); BUN 8 mg/dL (7-18); BUN/Creat Ratio 10.8 RATIO (10-20); Chloride 103 mmol/L (98-107); Creatinine, Serum 0.74 mg/dL (0.55-1.02); EST Glomerular Filtration Rate 86 mL/min (>60); Est Glom Filt Rate - Afr Amer 104 mL/min (>60); Estimated Creatinine Clearance 63.29 ml/min; Glucose 90 mg/dL (74-106); Potassium 3.8 mmol/L (3.5-5.1); Sodium Level 135 mmol/L (136-145); Troponin-I HS (w/2H Reflex) 6 pg/mL (3.0-54.0)
[2021-11-19 17:38] VITALS: BP 136/89
[2021-11-19 18:17] LABS: Reflex Troponin-HS? (from REC) Y
[2021-11-19 19:03] LABS: Troponin-I HS 5 pg/mL (3.0-54.0)
[2021-11-19 19:31] VITALS: BP 131/84
== END 2021-11-19 19:32 | disposition home or self-care (01) ==
PROVIDERS: Emergency Provider Emergency Medicine; Visit Provider Emergency Medicine
DX: R07.9 Chest pain, unspecified (principal); I10 Essential (primary) hypertension; E78.5 Hyperlipidemia, unspecified; R51.9 Headache, unspecified; F17.210 Nicotine dependence, cigarettes, uncomplicated; Z79.01 Long term (current) use of anticoagulants; Z79.899 Other long term (current) drug therapy
CPT/HCPCS: 71045; 80048; 84484; 85025; 85610; 93005; 99282; A4216

== ENCOUNTER → 2022-12-23 | Outpatient (CLI) | payer BC, SELFPAY ==
--- NOTE | 2022-12-23 10:16 | BI_ITS ---
MAMMOGRAPHY - BILATERAL SCREENING REASON FOR EXAM: Female, 57 years old. Routine annual screening examination. PERTINENT HISTORY: Non-contributory. TECHNIQUE: Digital bilateral breast jose (3D mammographic acquisition) in the CC and MLO projections. 2-D mediolateral oblique (MLO) and craniocaudad (CC) views of both breasts were obtained. CAD: Full Field Digital Mammography with Computer Added Detection was performed. COMPARISON: No comparison mammograms available at this time. If any prior films become available, an addendum to this report can be generated. FINDINGS: Breast Composition: The breasts are heterogeneously dense, which may obscure small masses. There are no dominant masses or suspicious calcifications. There is a 5.7 mm x 6 mm well-defined nodule in the inferior slightly medial aspect of the left breast. Correlation with ultrasound is recommended. No other significant abnormalities are identified. BI/SCRN MAMM (CAD)W/JOSE BILAT IMPRESSION: 5.7 mm x 6 mm well-defined nodule in the inferior slightly medial aspect of the left breast. Correlation with ultrasound is recommended. ASSESSMENT CATEGORY: BIRADS Category 0: Incomplete. Need additional imaging evaluation. A letter regarding these results will be sent to the patient by the facility within 30 days. Approximately 10% of breast cancers are not detected by mammography. A normal mammogram should not delay biopsy of a clinically suspicious abnormality. [id number] Electronically Signed: Stefano Wong MD at 12:41 EDT ,
--- NOTE | 2022-12-23 10:18 | BD_ITS ---
STUDY: DUAL ENERGY X-RAY ABSORPTIOMETRY / DXA REASON FOR EXAM: Female, 57 years old. [id number] TECHNIQUE: Bone Mineral Density (BMD) measurements of lumbar spine and bilateral hips were obtained. COMPARISON: None. FINDINGS: Lumbar Spine (L1-L4): g/cm2 (0.845) / T-score (-1.6) / Z-score (-0.3) Findings are suggestive of osteopenia with a moderate fracture risk. Left Femur Total: g/cm2 (0.700) / T-score (-2.0) / Z-score (-1.1) Left Femoral Neck: g/cm2 (0.589) / T-score (-2.3) / Z-score (-1.1) Right Femur Total: g/cm2 (0.702) / T-score (-2.0) / Z-score (-1.1) Right Femoral Neck: g/cm2 (0.584) / T-score (-2.4) / Z-score (-1.2) BD/Dexa Bone Density Study IMPRESSION: The patient is considered osteopenic as outlined below according to World Brayan Organization (WHO) criteria with a high fracture risk. Reference Information: The T-score is the number of standard deviations above or below the standard which is normal for young adults at their peak bone mineral density. The World Health Organization (WHO) interprets the T-scores as follows: Above -1 Normal bone density Between -1 and -2.5 Osteopenia Equal to / or below -2.5 Osteoporosis As a practical clinical guideline, osteopenia may be graded as follows: Mild -1 through -1.5 Moderate -1.6 through -2.0 Severe -2.1 through -2.4 The Z-score is the number of standard deviations above or below age-matched controls. A Z-score of less than -1.5 would be considered abnormal. References: 1. NIH Osteoporosis and Related Bone Diseases www osteo.org 2. International Society for Clinical Densitometry www iscd.org 3. National Osteoporosis Foundation www nof.org Electronically Signed: Stefano Wong MD at 10:59 EDT ,
== END | disposition home or self-care (01) ==
PROVIDERS: Referring Provider Nurse Practitioner Family; Visit Provider Nurse Practitioner Family
DX: Z12.31 Encounter for screening mammogram for malignant neoplasm of breast (principal); Z78.0 Asymptomatic menopausal state
CPT/HCPCS: 77063; 77067; 77080

== ENCOUNTER → 2023-01-13 | Outpatient (CLI) | payer BC, SELFPAY ==
--- NOTE | 2023-01-13 12:47 | US_ITS ---
STUDY: ULTRASOUND BREAST - LEFT REASON FOR EXAM: Female, 57 years old. Palpable lump TECHNIQUE: Axial and longitudinal images of the LEFT breast were performed with a high resolution ultrasound transducer. # OF IMAGES: 50 COMPARISON: None. FINDINGS: LEFT Breast: Focused ultrasound evaluation of the left breast in the area of concern shows only normal dense fibroglandular tissue. There is no suspicious shadowing solid lesion, architectural distortion, or clustered shadowing calcifications. US/Breast Limited Unilateral IMPRESSION: No suspicious sonographic findings ASSESSMENT CATEGORY: BIRADS Category 1: Negative. A letter regarding these results will be sent to the patient by the facility within 30 days. Electronically Signed: Fabricio Villa MD at 19:52 EDT ,
== END | disposition home or self-care (01) ==
PROVIDERS: Referring Provider Nurse Practitioner Family; Visit Provider Nurse Practitioner Family
DX: N63.20 Unspecified lump in the left breast, unspecified quadrant (principal)
CPT/HCPCS: 76642

== ENCOUNTER 2023-02-05 15:03 | Emergency (ER) | payer BC, SELFPAY ==
[2023-02-05 15:03] VITALS: BP 168/103; PULSE 95; RESP 14; TEMP 36.4; O2SAT 98; BMI 24.2
--- NOTE | 2023-02-05 16:04 | EDS_ITS ---
HPI History of Present Illness Chief Complaint: Bite Informant: patient Narrative Narrative: Patient presents with a tick in the center of her upper chest. She states she is pretty sure this was not there yesterday. But she noticed it today. No physical complaints. No bleeding. She is on warfarin. [place]. No history of Lyme disease. [facility] Medical History Acute asthma flare Asthma History of blood clots Hyperlipidemia Hypertension Home Medications lisinopril 10 mg tablet 20 mg PO DAILY 10/15/21 [History Last Taken Unknown] simvastatin 5 mg tablet 5 mg PO QHS 10/15/21 [History Last Taken Unknown] warfarin 5 mg tablet 5 mg PO DAILY 10/15/21 [History Last Taken Unknown] calcium carbonate 600 mg-vitamin D3 5 mcg (200 unit) tablet (Calcium 600 + D(3)) 1 tab PO DAILY 02/05/23 [History Last Taken Unknown] cholecalciferol (vitamin D3) 50 mcg (2,000 unit) tablet (D3 DOTS) 100 mcg PO DAILY 02/05/23 [History Last Taken Unknown] Allergy/AdvReac Type Severity Reaction Status Date / Time aspirin Allergy Hives Verified 02/05/23 15:03 Surgical History H/O: hysterectomy History of AAA (abdominal aortic aneurysm) repair History of tonsillectomy Social History Smoking Status: Current every day smoker tobacco type: cigarettes ROS ROS ED Constitutional Constitutional ED: Denies chills, fever(s) or subjective ENT ENT ED: Denies rhinorrhea Cardiovascular Cardiovascular: Denies chest pain Respiratory/Chest Respiratory/Chest: Denies cough Gastrointestinal Gastrointestinal: Denies nausea or vomiting Musculoskeletal Musculoskeletal: Denies myalgias Integumentary Reports other Details: Patient has no rash other than a little redness right at the bite area. ; Denies abscess, Abrasions or rash Neurologic Neurologic: Denies headache(s) or paresthesias Hematologic/Lymphatic Hematologic/Lymphatic: Reports easy bleeding and easy bruising Allergic/Immunologic Allergic/Immunologic ED: Denies urticaria EXAM Physical Exam Narrative Exam Narrative: General: Patient awake alert no acute distress sitting comfortably in chair. HEENT shows no trauma. No pallor. Chest is clear bilaterally with normal saturations at 98% on room air showing no hypoxia. Heart is regular. No murmur gallop or rub. Skin: There does appear to be a tick in the center of her chest just below the manubrial sternal junction. There is a 1 to 1.5 cm area of erythema just around this. But it seems to be a bit of a ring. I do not see rashes anywhere else. Const Vital Signs: 02/05/23 15:03 Temperature 97.6 F L Temperature Source Temporal Pulse Rate 95 Respiratory Rate 14 Blood Pressure 168/103 H Blood Pressure Mean 124 Pulse Ox 98 Oxygen Delivery Method Room Air PROC Procedures Other Procedures Procedure(s): See MDM MDM MDM MDM Narrative Medical decision making narrative: Procedure: Removal of tick: The area was cleansed with alcohol swabs. The tick was grabbed at the base and removed. Even with magnification it appears as though we did get all of this. You can actually see the tip of the tick that would normally bed in the skin and it does look to be complete on the tick. Patient tolerated this well. No bleeding. We discussed I will give her 1 dose of Doxy because of the small area of redness around this. I do not think she needs longer therapy. I do not think 1 dose of doxycycline will significantly alter her Coumadin levels/INR. Discharge Plan Triage Chief Complaint: Bite ED Provider: Mane Pate Dx/Rx/DC Orders Clinical Impression: Tick bite of chest wall Instructions: ED Tick Bite, No Abx Tx Prescriptions: No Action simvastatin 5 mg Tablet 5 mg PO QHS lisinopril 10 mg Tablet 20 mg PO DAILY warfarin 5 mg Tablet 5 mg PO DAILY calcium carbonate-vitamin D3 [Calcium 600 + D(3)] 600 mg-5 mcg (200 unit) tab let 1 tab PO DAILY cholecalciferol (vitamin D3) [D3 DOTS] 50 mcg (2,000 unit) tablet 100 mcg PO DAILY Primary Care Provider: Care Physician,No Primary Referrals: Care Physician,No Primary [Primary Care Provider] - Activity Restrictions/Additional Instructions: Follow-up with your primary physician or return here if redness increases, fevers, chills, muscle aches or any other concerns. Disposition Disposition: Home, Self Care
[2023-02-05] MEDS: Doxycycline 100 MG CAPSULE 200 MG PO (16:19)
== END 2023-02-05 16:27 | disposition home or self-care (01) ==
LOC: ED 16:19
PROVIDERS: Emergency Provider Emergency Medicine; Visit Provider Emergency Medicine
DX: S20.364A Insect bite (nonvenomous) of middle front wall of thorax, initial encounter (principal); I10 Essential (primary) hypertension; E78.5 Hyperlipidemia, unspecified; F17.210 Nicotine dependence, cigarettes, uncomplicated; J45.909 Unspecified asthma, uncomplicated; W57.XXXA Bitten or stung by nonvenomous insect and other nonvenomous arthropods, initial encounter
CPT/HCPCS: 99283

== ENCOUNTER 2023-03-19 21:01 | Emergency (ER) | payer SELFPAY ==
[2023-03-19 21:02] VITALS: BP 156/97; PULSE 111; RESP 16; TEMP 36.6; O2SAT 99; BMI 22.9
[2023-03-19 21:54] VITALS: PULSE 111; RESP 16; TEMP 37.1
--- NOTE | 2023-03-19 22:22 | EX.ED.DYSGE1 ---
HPI History of Present Illness Chief Complaint: Bite Narrative Narrative: Patient 57-year-old female with history of PE on Coumadin therapy (unknown last INR), hypertension hyperlipidemia presenting for pain redness and swelling of her left arm after cat bite. She states her cat bit her arm on evening. She states that her dog had nipped at the cat and the cat was in her arms that her cat bit her. The cat is otherwise been acting normally. The bite was on her distal forearm. She started to have increased pain, redness and swelling. Yesterday she states she could not move her wrist because of so bad. She has had chills but denies any fevers. She states she is always cold is not sure if this is new. Denies any other systemic symptoms. Is not a diabetic. Not currently on any antibiotics. No other complaints or concerns at this time. Is [id number] [facility] Medical History Acute asthma flare Asthma History of blood clots Hyperlipidemia Hypertension Home Medications lisinopril 10 mg tablet 20 mg PO DAILY 10/15/21 [History Last Taken Unknown] simvastatin 5 mg tablet 5 mg PO QHS 10/15/21 [History Last Taken Unknown] warfarin 5 mg tablet 5 mg PO DAILY 10/15/21 [History Last Taken Unknown] calcium carbonate 600 mg-vitamin D3 5 mcg (200 unit) tablet (Calcium 600 + D(3)) 1 tab PO DAILY 02/05/23 [History Last Taken Unknown] cholecalciferol (vitamin D3) 50 mcg (2,000 unit) tablet (D3 DOTS) 100 mcg PO DAILY 02/05/23 [History Last Taken Unknown] amoxicillin 875 mg-potassium clavulanate 125 mg tablet 1 tab PO BID #20 tabs 03/20/23 [Rx Last Taken Unknown] sulfamethoxazole 800 mg-trimethoprim 160 mg tablet (Bactrim DS) 1 tab PO BID #20 tabs 03/20/23 [Rx Last Taken Unknown] Allergy/AdvReac Type Severity Reaction Status Date / Time aspirin Allergy Hives Verified 03/19/23 21:03 Surgical History H/O: hysterectomy History of AAA (abdominal aortic aneurysm) repair History of tonsillectomy Social History Smoking Status: Current every day smoker tobacco type: cigarettes ROS ROS ED Constitutional Constitutional ED: Reports chills; Denies fever(s) Cardiovascular Cardiovascular: Denies chest pain Respiratory/Chest Respiratory/Chest: Denies cough Gastrointestinal Gastrointestinal: Denies abdominal pain, nausea or vomiting Musculoskeletal Musculoskeletal: Reports other Details: Left arm pain Integumentary Reports rash Neurologic Neurologic: Denies headache(s), paresthesias or weakness Psychiatric Psychiatric: Denies anxiety Hematologic/Lymphatic Hematologic/Lymphatic: Reports easy bleeding and easy bruising EXAM Physical Exam Const Vital Signs: 03/19/23 21:02 03/19/23 21:54 03/19/23 22:37 Temperature 97.8 F 98.7 F 98.6 F Temperature Source Temporal Oral Oral Pulse Rate 111 H 111 H 115 H Respiratory Rate 16 16 16 Blood Pressure 156/97 H 156/97 H Blood Pressure Mean 116 116 Pulse Ox 99 Oxygen Delivery Method Room Air Room Air 03/20/23 00:38 03/20/23 00:39 Temperature Temperature Source Pulse Rate 80 82 Respiratory Rate 20 H 16 Blood Pressure 110/66 110/66 Blood Pressure Mean 80 80 Pulse Ox 97 97 Oxygen Delivery Method Room Air Positive well nourished and well developed General Appearance ED: well developed and NAD HEENT Reports moist mucous membranes Neck supple Chest Wall inspection of chest normal and palpation of chest normal Resp normal respiratory effort and clear to auscultation bilaterally Cardio regular rhythm and no murmurs Rate: tachycardic GI normal to inspection, nondistended, normoactive bowel sounds and non-tender Extremity Extremity Narrative: Edema of the left forearm. Decreased range of motion of the left wrist as well as the left elbow. Normal range of motion of the fingers. Neuro oriented x3 Sensorium / Orientation: alert Motor Exam: Negative for general weakness Psych mental status grossly normal Skin Skin Narrative: Puncture wounds on dorsal and ventral aspect of the distal left forearm consistent with a cat bite. Patient has diffuse erythema and warmth of the forearm extending from the proximal hand to the elbow. It is circumferential. Consistent with a cellulitis. MDM MDM MDM Narrative Medical decision making narrative: For cat bite to her left forearm. This was a highly concerning for cellulitis. She has soft compartments I do not suspect compartment syndrome and there is no crepitus or suspicion for gas gangrene. Will obtain x-ray to look for any retained foreign bodies as well as free air or underlying fracture. Will start the patient on IV Unasyn and obtain inflammatory marker as well as blood cultures given the significance of the infection on initial exam. X-ray reviewed by myself as well as radiology does not show any foreign body or acute fracture. Patient has leukocytosis with a white blood cell count of 17.3 and significantly elevated inflammatory markers including an ESR of 46 and a CRP of 205. INR is mildly supratherapeutic at 3.7. Patient is informed of these findings. Patient is given dose of Unasyn in the ER. Is offered morphine but refuses. States that she is feeling better repeat evaluation. Counseled on the importance of further IV antibiotics my recommendation of admission however patient refused stating that she has animals to take care of and she also does not want to be in the hospital [facility]. Does have capacity to make this decision. Is counseled on the risk of worsening infection developing sepsis, compartment syndrome, gangrene and possible permanent disability, or loss of her limb. She verbalizes understanding of this. She is given strict return precautions. Will be discharged home on Augmentin and Bactrim. Is given outpatient follow-up for orthopedics as well as primary care. Is counseled that the antibiotics likely make her Coumadin level go up and she should have it checked next week. Encouraged Loco to return to the emergency room if she changes her mind or if she has progression or worsening of her symptoms. Is offered a prescription for pain medicine as well but declined stating that she lives alone and these vehicle to drive. Will take Tylenol for pain. Counseled on elevating her arm. Discharged home AGAINST MEDICAL ADVICE. Lab Data Attestation: I reviewed the patient's lab results. Labs: Laboratory Results - last 24 hr 03/19/23 22:27 WBC 17.3 H RBC 4.65 Hgb 15.9 H Hct 45.4 MCV 97.6 MCH 34.2 H MCHC 35.0 RDW Std Deviation 52.6 H RDW Coeff of Golden 14.7 H Plt Count 249 MPV 11.6 Immature Gran % (Auto) 0.600 Neut % (Auto) 80.3 H Lymph % (Auto) 9.6 L Rabun % (Auto) 9.0 Eos % (Auto) 0.1 Baso % (Auto) 0.4 Absolute Neuts (auto) 13.8 H Absolute Lymphs (auto) 1.66 Nucleated RBC % 0 Differential Comment SCANNED Diff Path Review July ESR 46 H PT 37.2 H INR 3.7 Sodium 134 L Potassium 3.4 L Chloride 100 Carbon Dioxide 27.0 Anion Gap 7 BUN 13 Creatinine 0.72 Estim Creat Clear Calc 64.27 Est GFR (MDRD) Af Amer 106 Est GFR (MDRD) Non-Af 88 BUN/Creatinine Ratio 17.9 Glucose 108 H Calcium 9.2 C-React Prot Ext Range 205.00 H Radiography Diagnostic Testing: Clinical Impression(s) from Imaging Studies Forearm X-Ray 03/19/23 22:38 IMPRESSION: Normal x-ray examination of the radius and ulna. Electronically Signed: Santy Gil MD at 23:13 EST Reading Location ID and State: [address] [place] [address] Tel , Service support , Discharge Plan Triage Chief Complaint: Bite ED Provider: Laly Mcdermott Dx/Rx/DC Orders Clinical Impression: Left against medical advice, Cellulitis of arm, left, Cat bite of left forearm with infection, Supratherapeutic INR Instructions: ED Cat Bite Prescriptions: New amoxicillin-pot clavulanate 875-125 mg tablet 1 tab PO BID Qty: 20 0RF sulfamethoxazole-trimethoprim [Bactrim DS] 800-160 mg tablet 1 tab PO BID Qty: 20 0RF No Action simvastatin 5 mg Tablet 5 mg PO QHS lisinopril 10 mg Tablet 20 mg PO DAILY warfarin 5 mg Tablet 5 mg PO DAILY calcium carbonate-vitamin D3 [Calcium 600 + D(3)] 600 mg-5 mcg (200 unit) tablet 1 tab PO DAILY cholecalciferol (vitamin D3) [D3 DOTS] 50 mcg (2,000 unit) tablet 100 mcg PO DAILY Primary Care Provider: Neela Poole Referrals: Siva Pino DO [Med Staff - Active Staff] - As Needed Care Physician,No Primary [Non-Staff] - Neela Poole, FORESTRY CONSULTANT-C [Primary Care Provider] - 3-5 Days Activity Restrictions/Additional Instructions: The antibiotics might make your INR (Coumadin level) go up. It was 3.7 tonight. You might need to cut your dose in half while you are on the antibiotics. I would recommend following up for an INR check next week. Please take all antibiotics as prescribed. As we discussed please return to the emergency room if you can arrange care for your pets and are agreeable with admission or if you have worsening symptoms. This infection is at high risk developing into sepsis (infection to your bloodstream) or causing permanent injury to your arm which could result in permanent disability or ultimately . Disposition Disposition: Against Medical Advice Discharge Date/Time: 03/20/23 01:18
[2023-03-19 22:37] VITALS: BP 156/97; PULSE 115; RESP 16; TEMP 37
--- NOTE | 2023-03-19 22:38 | RAD_ITS ---
STUDY: X-RAY - LEFT RADIUS AND ULNA REASON FOR EXAM: Female, 57 years old. cat bite TECHNIQUE: 2 view(s) of the forearm. COMPARISON: None. FINDINGS: There is no demonstrated soft tissue swelling. Normal visualized radius. Normal visualized ulna. RAD/Forearm 2 Views IMPRESSION: Normal x-ray examination of the radius and ulna. Electronically Signed: Santy Gil MD at 23:13 EST ,
[2023-03-19 22:46] LABS: Absolute Lymphocyte Count 1.66 X10^3/uL (0.83-4.51); Absolute Neutrophil Count 13.8 X10^3/uL (2.0-7.7); Basophil# 0.07 X10^3/uL; Basophil% 0.4 % (0-1); Eosinophil# 0.02 X10^3/uL; Eosinophils% 0.1 % (0-5); Hematocrit 45.4 % (37-47); Hemoglobin 15.9 g/dL (12.0-15.0); Lymphocyte # 1.66 X10^3/ul (0.83-4.51); Lymphocyte % 9.6 % (19-41); Mean Corpuscular Hgb 34.2 pg (27.0-32.0); Mean Corpuscular Volume 97.6 fL (81-99); Mean Platelet Vol. 11.6 fl (6.2-12.0); Monocyte# 1.55 X10^3/uL; NRBC Flagged by Analyzer 0 % (0-5); Neutrophil # 13.84 X10^3/uL (2.7-7.7); Neutrophil % 80.3 % (47-70); POSITIVE DIFFERENTIAL YES; Platelet Count 249 K/mm3 (150-450); RBC Distribution Width CV 14.7 % (11.6-14.6); RBC Distribution Width SD 52.6 fl (35.1-43.9); Red Blood Count 4.65 M/mm3 (4.2-5.4); White Blood Count 17.3 K/mm3 (4.4-11.0)
[2023-03-19 22:48] LABS: Differential Indicated SCAN CRITERIA MET
[2023-03-19] MEDS: Ampicillin/Sulbactam 3 GM in 0.9% Normal Saline (100mL MB+) 100 ML IV (22:54)
[2023-03-19] MEDS: Ondansetron 4 MG/2 ML Vial IV (22:56)
[2023-03-19] MEDS: Acetaminophen 325 MG Tablet 650 MG PO (22:56)
[2023-03-19 22:59] LABS: Differential Comment SCANNED; Erythrocyte Sedimentation Rate 46 mm/hr (0-30)
[2023-03-19 23:00] LABS: International Normalized Ratio 3.7; Prothrombin Time (Protime)PT. 37.2 SECONDS (11.7-14.9)
[2023-03-19 23:09] LABS: Anion Gap 7 (5-15); BUN 13 mg/dL (7-18); BUN/Creat Ratio 17.9 RATIO (10-20); Calcium,Total 9.2 mg/dL (8.5-10.1); Chloride 100 mmol/L (98-107); Creatinine, Serum 0.72 mg/dL (0.55-1.02); EST Glomerular Filtration Rate 88 mL/min (>60); Est Glom Filt Rate - Afr Amer 106 mL/min (>60); Estimated Creatinine Clearance 64.27 ml/min; Glucose 108 mg/dL (74-106); Potassium 3.4 mmol/L (3.5-5.1); Sodium Level 134 mmol/L (136-145)
[2023-03-20 00:38] VITALS: BP 110/66; PULSE 80; RESP 20; O2SAT 97
[2023-03-20 00:39] VITALS: BP 110/66; PULSE 82; RESP 16; O2SAT 97
[2023-03-22 13:38] LABS: Pathologist Review Reviewed
== END 2023-03-20 01:18 | disposition left against medical advice (07) ==
PROVIDERS: Emergency Provider Emergency Medicine; PCP Nurse Practitioner Family; Visit Provider Emergency Medicine
DX: Z53.29 Procedure and treatment not carried out because of patient's decision for other reasons (principal); S51.852A Open bite of left forearm, initial encounter; L03.114 Cellulitis of left upper limb; I10 Essential (primary) hypertension; E78.5 Hyperlipidemia, unspecified; F17.210 Nicotine dependence, cigarettes, uncomplicated; Z86.711 Personal history of pulmonary embolism; Z79.01 Long term (current) use of anticoagulants; W55.01XA Bitten by cat, initial encounter
CPT/HCPCS: 73090; 80048; 85025; 85610; 85652; 86140; 87040; 96365; 96366; 96375; 99284; J7040; A4216; J0295; J2405

== ENCOUNTER → 2023-07-27 | Outpatient (CLI) | payer MEDICAID, SELFPAY ==
[2023-07-27 10:14] LABS: Absolute Lymphocyte Count 2.25 X10^3/uL (0.83-4.51); Absolute Neutrophil Count 4.1 X10^3/uL (2.0-7.7); Basophil# 0.07 X10^3/uL; Eosinophil# 0.13 X10^3/uL; Eosinophils% 1.8 % (0-5); Hematocrit 44.5 % (37-47); Lymphocyte # 2.25 X10^3/ul (0.83-4.51); Lymphocyte % 30.9 % (19-41); Mean Corp Hgb Conc 33.7 g/dL (32-36); Mean Corpuscular Hgb 33.8 pg (27.0-32.0); Mean Corpuscular Volume 100.2 fL (81-99); Mean Platelet Vol. 11.3 fl (6.2-12.0); Monocyte# 0.71 X10^3/uL; Monocyte% 9.8 % (0-10); NRBC Flagged by Analyzer 0 % (0-5); Neutrophil % 56.2 % (47-70); Platelet Count 242 K/mm3 (150-450); RBC Distribution Width CV 12.6 % (11.6-14.6); RBC Distribution Width SD 47.4 fl (35.1-43.9); Red Blood Count 4.44 M/mm3 (4.2-5.4); White Blood Count 7.3 K/mm3 (4.4-11.0)
[2023-07-27 10:43] LABS: International Normalized Ratio 1.3; Prothrombin Time (Protime)PT. 15.9 SECONDS (11.7-14.9)
[2023-07-27 10:51] LABS: Vitamin D,25 Hydroxy 46.8 ng/mL
[2023-07-27 11:07] LABS: AST(SGOT) 55 U/L (15-37); Alanine Aminotransfer ALT/SGPT 36 U/L (13-56); Albumin, Serum 3.8 g/dL (3.2-5.0); Alkaline Phosphatase 59 U/L (45-117); Anion Gap 6 (5-15); BUN 14 mg/dL (7-18); BUN/Creat Ratio 19.9 RATIO (10-20); Calcium,Total 10.3 mg/dL (8.5-10.1); Chloride 108 mmol/L (98-107); Cholesterol 196 mg/dL (200); EST Glomerular Filtration Rate 91 mL/min (>60); Est Glom Filt Rate - Afr Amer 110 mL/min (>60); Globulin 3.7 g/dL (2.2-4.2); Glucose 94 mg/dL (74-106); High Density Lipoprotein 67 mg/dL; Potassium 3.8 mmol/L (3.5-5.1); Protein, Total 7.5 g/dL (6.4-8.2); Sodium Level 139 mmol/L (136-145); Thyroid Stim Hormone (TSH) 1.36 uIU/mL (0.358-3.74); Triglycerides 99 mg/dL; Very Low Density Lipoprotein 20 mg/dL (5-40)
== END | disposition home or self-care (01) ==
LOC: MFPLAB 08:59
PROVIDERS: PCP Nurse Practitioner Family; Visit Provider Family Medicine
DX: E78.5 Hyperlipidemia, unspecified (principal); E55.9 Vitamin D deficiency, unspecified; I10 Essential (primary) hypertension; Z86.718 Personal history of other venous thrombosis and embolism
CPT/HCPCS: 36415; 80053; 80061; 82306; 84443; 85025; 85610

== ENCOUNTER → 2024-01-27 | Outpatient (CLI) | payer MEDICAID, SELFPAY | END | disposition home or self-care (01) | LOC: MTRAD 11:38 | PROVIDERS: PCP Family Medicine; Referring Provider Family Medicine; Visit Provider Family Medicine | DX: M25.552 Pain in left hip (principal) | CPT/HCPCS: 73502 ==

== ENCOUNTER → 2024-07-31 | Outpatient (CLI) | payer MEDICAID, SELFPAY ==
[2024-07-31 10:23] LABS: Absolute Lymphocyte Count 1.64 X10^3/uL (0.83-4.51); Absolute Neutrophil Count 4.2 X10^3/uL (2.0-7.7); Basophil# 0.06 X10^3/uL; Basophil% 0.9 % (0-1); Eosinophil# 0.07 X10^3/uL; Eosinophils% 1.1 % (0-5); Hematocrit 38.6 % (37-47); Hemoglobin 12.7 g/dL (12.0-15.0); Lymphocyte # 1.64 X10^3/ul (0.83-4.51); Lymphocyte % 25.3 % (19-41); Mean Corp Hgb Conc 32.9 g/dL (32-36); Mean Corpuscular Hgb 30.9 pg (27.0-32.0); Mean Corpuscular Volume 93.9 fL (81-99); Mean Platelet Vol. 11.3 fl (6.2-12.0); Monocyte# 0.53 X10^3/uL; Monocyte% 8.2 % (0-10); NRBC Flagged by Analyzer 0 % (0-5); Neutrophil # 4.17 X10^3/uL (2.7-7.7); Neutrophil % 64.2 % (47-70); Platelet Count 232 K/mm3 (150-450); RBC Distribution Width CV 12.4 % (11.6-14.6); RBC Distribution Width SD 43.1 fl (35.1-43.9); Red Blood Count 4.11 M/mm3 (4.2-5.4); White Blood Count 6.5 K/mm3 (4.4-11.0)
[2024-07-31 11:18] LABS: ALB/GLOB Ratio 1.5 RATIO (0.9-2.4); AST(SGOT) 24 U/L (<=31); Alanine Aminotransfer ALT/SGPT 18 U/L (<=34); Albumin, Serum 4.4 g/dL (3.5-5.0); Alkaline Phosphatase 69 U/L (35-104); Anion Gap 10 (5-15); BUN 13 mg/dL (4-19); BUN/Creat Ratio 13.3 RATIO (10-20); Calcium,Total 10.2 mg/dL (7.6-11.0); Chloride 105 mmol/L (98-108); Cholesterol 190 mg/dL (<=200); Creatinine, Serum 1.01 mg/dL (0.70-1.20); EST Glomerular Filtration Rate 64 (>60); Glucose 102 mg/dL (70-99); High Density Lipoprotein 44 mg/dL; Low Density Lipoprotein Calc. 121 mg/dL; Potassium 4.3 mmol/L (3.3-5.1); Protein, Total 7.4 g/dL (5.9-8.4); Sodium Level 141 mmol/L (133-145); Total Bilirubin 0.46 mg/dL (0.00-1.30); Triglycerides 126 mg/dL; Very Low Density Lipoprotein 25 mg/dL (5-40); Vitamin D,25 Hydroxy 46.7 ng/mL (30-100); cholesterol:hdl ratio screen 4.35
== END | disposition home or self-care (01) ==
LOC: MFPLAB 09:06
PROVIDERS: PCP Family Medicine; Referring Provider Family Medicine; Visit Provider Family Medicine
DX: I10 Essential (primary) hypertension (principal); E78.5 Hyperlipidemia, unspecified; E55.9 Vitamin D deficiency, unspecified
CPT/HCPCS: 36415; 80053; 80061; 82306; 85025